=== PATIENT | male | born 1995 | race Caucasian/White ===

== ENCOUNTER 2017-04-26 14:03 | Emergency (ER) | payer OTHER ==
--- NOTE | ~2017-04-26 | CR126 ---
[facility] RADIOLOGY TEXT RESULTS PATIENT: JAIR NELSON LOCATION: SED : [birth year] UNIT #: [id number] AGE: [address]: JAC BALBUENA SEX: M ORDER DR: [id number] [place] [id number] E MR#: [id number] Acc #: [id number] NAME: JAIR NELSON : 1995 SEX: M STUDY DATE/TIME: 04/26/2017 14:35 UNIT: SED ROOM: STUDY DESCRIPTION: CR Foot Complete Min 3 View Lt Attending Physician: (Res) Jac Balbuena Ordering Physician: Staff Doctor Not On Primary Care Physician: Jackson Damon M.D. MEDICAL IMAGING REPORT This report is preliminary unless electronic signature is present. EXAMINATION Three views left foot. DATE 04/26/2017 HISTORY 21-year-old male with fifth toe pain and bruising after hitting toe twice last night. COMPARISON None. FINDINGS There is an obliquely oriented displaced fracture involving the mid shaft of the proximal phalanx of the fifth toe. No definite interarticular fracture extension is seen and no joint dislocation is identified. No retained radiopaque foreign body is seen in the soft tissues. IMPRESSION Oblique mildly displaced fracture involving the mid shaft proximal phalanx left fifth toe without definite articular involvement or joint dislocation. Dictated by... Funmi Medrano M.D. THIS IS AN ELECTRONICALLY VERIFIED REPORT Funmi Medrano M.D. at 04/28/2017 7:35 AM QING/trena TD: 04/26/2017 21:29 [facility] RADIOLOGY TEXT RESULTS PATIENT: JAIR NELSON LOCATION: SED : [birth year] UNIT #: [id number] AGE: [address]: JAC BALBUENA SEX: M ORDER DR: SEGUNDO #: [id number] MEDICAL IMAGING REPORT Page 1 of 1
[~2017-04-26 14:03] MED LIST: NO MEDICATIONS
== END 2017-04-26 15:23 | disposition home or self-care (01) ==
LOC: SED 14:03
DX: S92.412A Displaced fracture of proximal phalanx of left great toe, initial encounter for closed fracture (principal); X58.XXXA Exposure to other specified factors, initial encounter; Y92.098 Other place in other non-institutional residence as the place of occurrence of the external cause
CPT/HCPCS: 29405; 73630; 99283